=== PATIENT | male | born 1960 | race Caucasian/White ===

== ENCOUNTER → 2018-04-28 | Outpatient (CLI) | payer OTHER | END | disposition home or self-care (01) | LOC: CFH 07:43 | PROVIDERS: ATTEND Internal Medicine Cardiovascular Disease | DX: I10 Essential (primary) hypertension (principal); F17.210 Nicotine dependence, cigarettes, uncomplicated; R06.00 Dyspnea, unspecified; R07.9 Chest pain, unspecified | CPT/HCPCS: 93306 ==

== ENCOUNTER 2020-03-19 18:55 | Emergency (ER) | payer MEDICARE, OTHER ==
[~2020-03-19] VITALS: Ht 167.6 cm; Wt 67.9 kg
--- NOTE | 2020-03-19 19:26 | NUR ---
PT PRESENTING TO ER FOR HTN, STS READINGS AT HOME WERE 190S/90S. TOOK [facility] [employer]. MD TO BEDSIDE, ORDERS RECEIVED FOR LABS, RAD AND EKG. CONNECTED TO ALL MONITORING, VSS AT THIS TIME, SLIGHT HTN NOTED. FAMILY AT BEDSIDE. CALL LIGHT WITHIN REACH. WILL CONTINUE TO MONITOR
[2020-03-19 19:47] LABS: TROPONIN I < 0.015 ng/mL (0.000-0.045)
--- NOTE | 2020-03-19 19:53 | NUR ---
ALL RESULTS BACK AT THIS TIME, CHART UP FOR RECHECK
[2020-03-19 20:20] VITALS: BP 149/83
== END 2020-03-19 20:22 | disposition home or self-care (01) ==
LOC: ED 19:40
DX: I10 Essential (primary) hypertension (principal); R94.31 Abnormal electrocardiogram [ECG] [EKG]; Z87.891 Personal history of nicotine dependence
CPT/HCPCS: 36415; 71045; 83880; 84484; 93005; 99285